=== PATIENT | male | born 1995 | race Hispanic/Latino ===

== ENCOUNTER 2017-11-16 13:00 | Emergency (ER) | payer SELFPAY ==
[2017-11-16 13:22] VITALS: BP 130/82; PULSE 92; RESP 18; TEMP 98.8; O2SAT 97
--- NOTE | 2017-11-16 15:12 | RAD ---
Left shoulder three views History: Injury. Comparison: None available. Findings: No evidence for acute displaced fracture or dislocation. Glenohumeral and acromioclavicular joint spaces are preserved. Impression: Negative acute. If pain persists, consider MRI.
--- NOTE | 2017-11-16 16:37 | C.PDOC ---
History Of Present Illness Checo John is a 22 y/o male who presents to the ER complaining of left shoulder pain for 1 week. Denies any trauma or direct injury to the area. Patient admits to exercising daily. No chest pain or shortness of breath. No medical issues. Time Seen by Provider: 11/16/17 13:24 Chief Complaint (Nursing): Upper Extremity Problem/Injury History Per: Patient History/Exam Limitations: no limitations Onset/Duration Of Symptoms: Days (x 1 week) Current Symptoms Are (Timing): Still Present Past Medical History Reviewed: Historical Data, Nursing Documentation, Vital Signs Vital Signs: Last Vital Signs Temp 98.8 F 11/16/17 14:27 Pulse 92 H 11/16/17 14:27 Resp 18 11/16/17 14:27 BP 130/82 11/16/17 14:27 Pulse Ox 97 11/16/17 16:42 - Medical History PMH: No Chronic Diseases - [facility] Procedures APPLICATION OF SPLINT (09/07/14) Family History: States: Unknown Family Hx - Social History Hx Tobacco Use: No Hx Alcohol Use: No Hx Substance Use: No - Immunization History Hx Influenza Vaccination: No Hx Pneumococcal Vaccination: No Review Of Systems Except As Marked, All Systems Reviewed And Found Negative. Cardiovascular: Negative for: Chest Pain Respiratory: Negative for: Shortness of Breath Musculoskeletal: Positive for: Shoulder Pain (Left) Neurological: Negative for: Weakness, Numbness Physical Exam - Physical Exam Appears: Non-toxic, No Acute Distress Skin: Normal Color, Warm, Dry Head: Atraumatic, Normacephalic Eye(s): bilateral: Normal Inspection, PERRL, EOMI Oral Mucosa: Moist Neck: Normal ROM, Supple Cardiovascular: Rhythm Regular, No Murmur Respiratory: Normal Breath Sounds, No Accessory Muscle Use Gastrointestinal/Abdominal: Normal Exam, Soft, No Tenderness Extremity: Tenderness (to the anterior aspect of left shoulder, with slightly decreased ROM and flexion), Capillary Refill (less than 2 sec), No Deformity, No Swelling Pulses: Left Radial: Normal, Right Radial: Normal Neurological/Psych: Oriented x3, Normal Speech, Normal Motor, Normal Sensation ED Course And Treatment O2 Sat by Pulse Oximetry: 97 (RA) Pulse Ox Interpretation: Normal Medical Decision Making Medical Decision Making: Initial Plan: Motrin 600 mg PO Will order Left Shoulder X-Ray to r/o fracture X-Ray left shoulder: Findings: No evidence for acute displaced fracture or dislocation. Glenohumeral and acromioclavicular joint spaces are preserved. Impression: Negative acute. If pain persists, consider MRI. Pt is medically stable for d/c. Instructed to follow up with PMD for reevaluation in 2-3 days. Disposition Counseled Patient/Family Regarding: Studies Performed, Diagnosis, Need For Followup - Disposition Referrals: [facility] [Outside] [facility] [Outside] Disposition: HOME/ ROUTINE Disposition Time: 13:50 Condition: GOOD Additional Instructions: Thank you for letting us take care of you today. If you were prescribed any medication, please fill it and take as directed. It may take several days for your symptoms to resolve. Return to the Emergency Department if your symptoms worsen, do not improve, or if you have any other problems. Please contact your doctor or call one of the physicians/clinics you have been referred to that are listed on the Patient Visit Information form that is included in your discharge packet. Bring any paperwork you were given at discharge with you along with any medications you are taking to your follow up visit. Our treatment cannot replace ongoing medical care by a primary care provider (PCP) outside of the emergency department. Thank you for allowing the [facility] team to be part of your care today. Follow up with the clinic in 2 days for re-evaluation and further management. Instructions: Shoulder Sprain (ED) - Clinical Impression Clinical Impression: Shoulder sprain - Scribe Statement The provider has reviewed the documentation as recorded by the Scribe (Tania Childers) Provider Attestation: All medical record entries made by the Maryjaneibe were at my direction and personally dictated by me. I have reviewed the chart and agree that the record accurately reflects my personal performance of the history, physical exam, medical decision making, and the department course for this patient. I have also personally directed, reviewed, and agree with the discharge instructions and disposition.
== END 2017-11-16 14:27 | disposition home or self-care (01) ==
LOC: C.ER 13:00
DX: S43.402A Unspecified sprain of left shoulder joint, initial encounter (principal); X58.XXXA Exposure to other specified factors, initial encounter